=== PATIENT | male | born 1985 | race Caucasian/White ===

== ENCOUNTER → 2020-12-04 13:46 | Outpatient (BNVA) | payer SELFPAY | PROVIDERS: Family Provider Nurse Practitioner Family; PCP Nurse Practitioner Family; Visit Provider Nurse Practitioner Family | DX: M54.9 Dorsalgia, unspecified (principal); M54.2 Cervicalgia | CPT/HCPCS: 72040; 72072 ==

== ENCOUNTER 2022-12-11 18:47 | Emergency (ER) | payer SELFPAY ==
[2022-12-11 18:50] VITALS: BP 118/72; PULSE 87; RESP 16; TEMP 37.1; O2SAT 91; BMI 22.4
[2022-12-11 19:43] LABS: Basophils % 0.6 %; Eosinophils # 0.2 10^3/uL (0.0-0.8); Eosinophils % 3.3 %; Hemoglobin 12.7 g/dL (11.7-16.6); Lymphocytes # 1.8 10^3/uL (0.8-4.8); Lymphocytes % 35.9 %; Mean Corpuscular HGB Conc 32.6 g/dL (30.0-36.0); Mean Corpuscular Hemoglobin 31.7 pg (28.0-34.0); Mean Corpuscular Volume 97.3 fl (80-94); Mean Platelet Volume 9.7 fL (7.4-10.4); Monocytes # 0.4 10^3/uL (0.2-0.9); Monocytes % 7.2 %; Neutrophils # 2.58 10^3/uL (1.8-7.7); Neutrophils % 52.8 %; Nucleated Red Blood Cells % 0 %; Platelet Count 170 10^3/cmm (130-400); Red Blood Count 4.01 10^6/uL (4.1-5.3); Red Cell Distribution Width 13.2 % (12.1-15.1); White Blood Count 4.9 10^3/uL (4.0-10.0)
[2022-12-11 19:49] LABS: Add Urine Microscopic? NO; Charge for UA Resulting for Rev
[2022-12-11 19:57] LABS: Bilirubin Urine Neg (Negative); Blood Urine Neg (Negative); Glucose Urine UA Norm (Normal); Ketones Urine Negative (Negative); Leukocyte Esterase Urine Negative (Negative); Nitrate Urine Negative (Negative); Protein Urine Neg (Negative); Specific Gravity, Urine 1.005 (1.005-1.030); Urine Appearance Clear (CLEAR); Urine Color Colorless (Yellow); Urobilinogen Urine Norm (Negative); pH Urine 7 (5-7)
[2022-12-11 19:59] LABS: Alanine Aminotransferase 19 U/L (0-41); Albumin Level 4.4 g/dL (3.5-5.2); Alcohol Level 30 mg/dL (0-10); Alkaline Phosphatase 52 U/L (40-130); Anion Gap 15.2 (5-19); Aspartate Amino Transferase 24 U/L (0-40); Blood Urea Nitrogen 9 mg/dL (6-20); Calcium 8.6 mg/dL (8.5-10.5); Carbon Dioxide 26 mmol/L (22-29); Chloride 104 mmol/L (98-107); Globulin 2.4 g/dL (1.3-4.6); Glomerular Filtration Rate 126.2 mL/min (90-130); Glucose 90 mg/dL (65-115); Osmolality Calculated 290 mOsm/kg (285-295); Potassium 4.2 mmol/L (3.5-5.1); Sodium 141 mmol/L (136-145); Total Bilirubin 0.2 mg/dL (0.15-1.2); Total Protein 6.8 g/dL (6.6-8.7)
[2022-12-11 20:03] LABS: Acetaminophen < 5.0 ug/mL (10-30); Salicylate < 0.3 mg/dL (3-10)
[2022-12-11 20:17] LABS: Amphetamines Screen Urine Negative (Negative); Barbiturates Screen Urine Negative (Negative); Benzodiazepines Screen Urine Positive (Negative); Cocaine Screen Urine Negative (Negative); PCP Screen Urine Negative (Negative); THC Screen Urine Positive (Negative)
[2022-12-11 20:18] LABS: Opiate Screen Urine Negative (Negative)
--- NOTE | 2022-12-11 20:24 | ECG_ITS ---
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 Measurements Intervals [place] Rate: 77 P: 60 PA: 147 QRS: 90 QRSD: 106 T: 62 QT: 388 QTc: 439 Interpretive Statements SINUS RHYTHM No previous ECG available for comparison Electronically Signed On 12-12-2022 5:59:17 CDT by Brandon Viveros M.D. [id number]
[2022-12-11 22:53] VITALS: BP 118/72; PULSE 87; RESP 16; TEMP 37.1; O2SAT 91
--- NOTE | 2022-12-12 05:49 | W.ED.PSYCHS ---
HPI - Psych General: Chief Complaint: Psychiatric Symptoms Stated Complaint: combative pt Time Seen by Provider: 12/11/22 18:52 Source: patient and EMS History of Present Illness: 37-year-old male who presents by EMS with erratic and bizarre behavior and statements. He is quite somnolent on my exam, and only answers simple questions with yes or no. MD complaint: altered mental status Onset (ago): unknown History of same: Yes Relieving factors: none Exacerbating factors: drug use Associated symptoms: Reports visual hallucinations; Deny homicidal ideation or suicidal ideation Review of Systems General: Reports: ROS unobtainable due to mental status Psych: Reports: visual hallucinations; Denies: suicidal ideation or homicidal ideation PFS ED PFSH: Medical History No significant past medical history Surgical History No pertinent past surgical history Family History Grandmother Hypertension Social History Smoking and tobacco status: current every day smoker cigarettes Packs smoked per day: 1 Second hand smoke exposure: Yes Smoking risk assessment/counseling performed?: No Alcohol intake: never Desire information about alcohol rehabilitation?: No Counseling given: No Substance/Drug Use: never Desire information about substance/drug rehabilitation?: No Counseling given: No Adopted: No Caregiver/support person: No Lives independently: Yes Household members: significant other Housing: House Marital status: Single Number of children: 0 Highest education level completed: 10th Grade service: No Current occupational status: unemployed Physical Exam Const: COMMON NORMALS: no acute distress GENERAL APPEARANCE: lethargic; not ill appearing and not frail appearing ORIENTATION/CONSCIOUSNESS: Yes lethargic HENMT: COMMON NORMALS: normocephalic, atraumatic and Normal external nose present HEAD & SCALP: normocephalic and atraumatic FACE & SINUS: normal facial exam and face symmetric NOSE: Normal external nose present Eye: COMMON NORMALS: Equal, round and reactive pupils present and EOMs intact bilaterally PUPIL: Yes Equal, round and reactive pupils present Neck/C-Spine: GENERAL: Yes trachea midline Chest: CHEST: Yes Symmetrical chest wall rise Resp: COMMON NORMALS: normal respiratory effort, No retractions, No use of accessory muscles and clear to auscultation bilaterally AUSCULTATION: clear to auscultation bilaterally Cardio: COMMON NORMALS: regular rate and regular rhythm RATE: regular rate RHYTHM: regular rhythm GI: COMMON NORMALS: Normal to inspection, nondistended, normoactive bowel sounds present Extremity: COMMON NORMALS: no pedal edema Neuro: BOBBI COMA SCALE: document GCS findings Bobbi coma scale eye opening: To sound Bobbi coma scale verbal response: Words [place] coma scale motor response: Obey commands Bobbi coma scale total score: 12 SENSORIUM/ORIENTATION: Yes lethargic SENSORY EXAM: Yes extremities (intact) Psych: COMMON NORMALS: speech normal SPEECH: Yes normal speech Skin: COMMON NORMALS: no rashes or lesions noted GENERAL SKIN EXAM: no rashes or lesions noted Course Vital Signs: Vital signs: Vital Signs Temperature 98.8 F 12/11/22 22:53 Pulse Rate 87 12/11/22 22:53 Respiratory Rate 16 12/11/22 22:53 Blood Pressure 118/72 12/11/22 22:53 Pulse Oximetry 91 12/11/22 22:53 MDM - Psych Medical Decision Making Patient was calm during his stay here. He awoke, was appropriate, did not remember what had happened that brought him to the ER serum work-up is essentially normal. Urinalysis is negative. Urine drug screen is positive for marijuana and benzodiazepines. His alcohol level is only 30. On reexamination, he is sitting on the side of the bed. He is alert and appropriate, as well as respectful. His vital signs are normal. He asks politely if he may be discharged. He maintains that he is not suicidal or homicidal. He is allowed discharged Lab Data 12/11/22 19:31 12/11/22 19:31 Laboratory Results WBC 4.9 10^3/uL (4.0-10.0) 12/11/22 19:31 RBC 4.01 10^6/uL (4.1-5.3) L 12/11/22 19:31 Hgb 12.7 g/dL (11.7-16.6) 12/11/22 19: Hct 39.0 % (42.0-52.0) L 12/11/22 19:31 MCV 97.3 fl (80-94) H 12/11/22 19: MCH 31.7 pg (28.0-34.0) 12/11/22 19: MCHC 32.6 g/dL (30.0-36.0) 12/11/22 19: RDW 13.2 % (12.1-15.1) 12/11/22 19: Plt Count 170 10^3/cmm (130-400) 12/11/22 19:31 MPV 9.7 fL (7.4-10.4) 12/11/22 19:31 Neut % (Auto) 52.8 % 12/11/22 19: Lymph % (Auto) 35.9 % 12/11/22 19:31 Mathews % (Auto) 7.2 % 12/11/22 19: Eos % (Auto) 3.3 % 12/11/22 19:31 Baso % (Auto) 0.6 % 12/11/22 19: Neut # (Auto) 2.58 10^3/uL (1.8-7.7) 12/11/22 19:31 Lymph # (Auto) 1.8 10^3/uL (0.8-4.8) 12/11/22 19:31 Mathews # (Auto) 0.4 10^3/uL (0.2-0.9) 12/11/22 19:31 Eos # (Auto) 0.2 10^3/uL (0.0-0.8) 12/11/22 19: Baso # (Auto) 0.0 10^3/uL (0.0-0.1) 12/11/22 19: Nucleated RBC % (auto) 0 % 12/11/22 19: Nucleated RBCs # 0.0 /100WBC 12/11/22 19:31 Sodium 141 mmol/L (136-145) 12/11/22 19:31 Potassium 4.2 mmol/L (3.5-5.1) 12/11/22 19:31 Chloride 104 mmol/L (98-107) 12/11/22 19: Carbon Dioxide 26 mmol/L (22-29) 12/11/22 19:31 Anion Gap 15.2 (5-19) 12/11/22 19:31 BUN 9 mg/dL (6-20) 12/11/22 19:31 Creatinine 0.7 mg/dL (0.7-1.2) 12/11/22 19:31 GFR Calculation 126.2 mL/min (90-130) 12/11/22 19:31 Glucose 90 mg/dL (65-115) 12/11/22 19:31 Calculated Osmolality 290 mOsm/kg (285-295) 12/11/22 19:31 Calcium 8.6 mg/dL (8.5-10.5) 12/11/22 19:31 Total Bilirubin 0.2 mg/dL (0.15-1.2) 12/11/22 19:31 AST 24 U/L (0-40) 12/11/22 19:31 ALT 19 U/L (0-41) 12/11/22 19:31 Alkaline Phosphatase 52 U/L (40-130) 12/11/22 19:31 Total Protein 6.8 g/dL (6.6-8.7) 12/11/22 19:31 Albumin 4.4 g/dL (3.5-5.2) 12/11/22 19:31 Globulin 2.4 g/dL (1.3-4.6) 12/11/22 19:31 Urine Color Colorless (Yellow) 12/11/22 19:43 Urine Appearance Clear (CLEAR) 12/11/22 19:43 Urine pH 7 (5-7) 12/11/22 19:43 Ur Specific [place] 1.005 (1.005-1.030) 12/11/22 19:43 Urine Protein Neg (Negative) 12/11/22 19:43 Urine Glucose (UA) Norm (Normal) 12/11/22 19:43 Urine Ketones Negative (Negative) 12/11/22 19:43 Urine Blood Neg (Negative) 12/11/22 19:43 Urine Nitrate Negative (Negative) 12/11/22 19:43 Urine Bilirubin Neg (Negative) 12/11/22 19:43 Urine Urobilinogen Norm mg/dL (Negative) 12/11/22 19:43 Ur Leukocyte Esterase Negative (Negative) 12/11/22 19:43 Salicylates < 0.3 mg/dL (3-10) L 12/11/22 19:31 Urine Opiates Screen Negative ng/mL (Negative) 12/11/22 19:43 Acetaminophen < 5.0 ug/mL (10-30) L 12/11/22 19:31 Ur Barbiturates Screen Negative ng/mL (Negative) 12/11/22 19:43 Ur Phencyclidine Scrn Negative ng/mL (Negative) 12/11/22 19:43 Ur Amphetamines Screen Negative ng/mL (Negative) 12/11/22 19:43 U Benzodiazepines Scrn Positive ng/mL (Negative) H 12/11/22 19:43 Urine Cocaine Screen Negative ng/mL (Negative) 12/11/22 19:43 U Marijuana (THC) Screen Positive ng/mL (Negative) H 12/11/22 19:43 Ethyl Alcohol 30 mg/dL (0-10) H 12/11/22 19:31 Discharge Plan Discharge Patient Disposition: Home Clinical Impression: Acute alteration in mental status Condition: Stable Prescriptions: No Action buprenorphine HCl 8 mg tablet, sublingual 8 mg sublingual TID Discharge Orders: Discharge ED (Routine); Ordered 12/11/22 Ordered By: Xavier Torres Referrals: Tiffany Montiel FNP-C [Primary Care Provider] - Patient Instructions: Altered Mental Status (ED), Opioid Safety, Pain Management Coding Level of Care Code ED 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
== END 2022-12-11 22:53 | disposition home or self-care (01) ==
PROVIDERS: Emergency Provider Emergency Medicine; PCP Nurse Practitioner Family
DX: R41.82 Altered mental status, unspecified (principal); F17.210 Nicotine dependence, cigarettes, uncomplicated
CPT/HCPCS: 36415; 80053; 80306; 80307; 81003; 85025; 93005; 99284

== ENCOUNTER → 2023-04-28 09:14 | Outpatient (BNVA) | payer SELFPAY | PROVIDERS: PCP Nurse Practitioner Family; Visit Provider Nurse Practitioner | DX: M79.10 Myalgia, unspecified site (principal) | CPT/HCPCS: 73130 ==

== ENCOUNTER 2024-07-09 22:20 | Emergency (ER) | payer BC, MEDICAID, SELFPAY ==
[2024-07-09 22:34] VITALS: BP 124/81; PULSE 76; RESP 18; TEMP 36.5; O2SAT 93
--- NOTE | 2024-07-09 23:17 | XRR_ITS ---
PROCEDURE INFORMATION: Exam: XR Left Knee Exam date and time: 07/10/2024 1:22 AM Age: 38 years old Clinical indication: Swelling or effusion of joint; Patient HX: C/O left knee pain with swelling. Recently diagnosed with gout. ; Additional info: L knee pain and swelling TECHNIQUE: Imaging protocol: Radiologic exam of the left knee. Views: 3 views. COMPARISON: US soft tissue/extremity [id number] 12/12/2017 1:40 PM FINDINGS: Bones/joints: Normal mineralization and alignment. No evidence of acute fracture or dislocation. No definitive joint effusion. Soft tissues: The soft tissues are within normal limits. XR/XR knee LT 3V* [id number] IMPRESSION: No acute pathology.
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
[2024-07-10 02:21] VITALS: PULSE 82; O2SAT 90
[2024-07-10] MEDS: ketorolac 30 mg/mL INJ IM (02:38)
[2024-07-10 02:45] VITALS: BP 121/73; PULSE 76; O2SAT 92
--- NOTE | 2024-07-14 00:01 | DCPLANNER ---
Message sent to [facility] for follow up -
== END 2024-07-10 02:49 | disposition home or self-care (01) ==
PROVIDERS: Emergency Provider Emergency Medicine; PCP Nurse Practitioner
DX: M70.42 Prepatellar bursitis, left knee (principal); M76.52 Patellar tendinitis, left knee; F17.210 Nicotine dependence, cigarettes, uncomplicated
CPT/HCPCS: 73562; 96372; 99284; J1885

== ENCOUNTER → 2025-02-28 14:12 | Outpatient (BNVA) | payer BC, MEDICAID, SELFPAY | PROVIDERS: PCP Nurse Practitioner; Visit Provider Clinical Nurse Specialist Adult Health | DX: S93.402A Sprain of unspecified ligament of left ankle, initial encounter (principal); X58.XXXA Exposure to other specified factors, initial encounter | CPT/HCPCS: 73610 ==